=== PATIENT | female | born 1975 | race Caucasian/White ===

== ENCOUNTER 2017-09-08 20:04 | Emergency (ER) | payer OTHER ==
[~2017-09-08] VITALS: Ht 160 cm; Wt 104.3 kg
[~2017-09-08 20:04] MED LIST: ATENOLOL/HCTZ; HYDROCODON-ACE1 EAC7 PO; KEFLEX250 MG PO; NAPROSYN500 MG PO; ROBAXIN 750 MG750 M1 PO; SIMVASTATIN; TESSALON200 MG PO; ZPAK PO; [UNRECOGNIZED DRUG - OTHER]
[2017-09-08] MEDS ORDERED: NORCO 5-325 TA1 EAC1 PO (21:12)
[2017-09-08] MEDS ORDERED: CLEOCIN HCL150 MG PO (21:12)
[2017-09-08 21:23] VITALS: BP 147/96
[2018-05-19] MEDS ORDERED: NAPROSYN500 MG PO (07:15)
== END 2017-09-08 21:24 | disposition home or self-care (01) ==
LOC: M.ERS 20:04
DX: N61.1 Abscess of the breast and nipple (principal); F17.210 Nicotine dependence, cigarettes, uncomplicated; I10 Essential (primary) hypertension; E78.00 Pure hypercholesterolemia, unspecified; Z88.1 Allergy status to other antibiotic agents; Z88.8 Allergy status to other drugs, medicaments and biological substances; Z90.49 Acquired absence of other specified parts of digestive tract

== ENCOUNTER 2017-10-26 13:15 | Emergency (ER) | payer OTHER ==
[~2017-10-26] VITALS: Ht 160 cm; Wt 106.6 kg
[~2017-10-26 13:15] MED LIST changes: +CLEOCIN HCL150 MG PO; +NORCO 5-325 TA1 EAC1 PO
[2017-10-26] MEDS ORDERED: ADDERALL 10 MG10 MG PO (13:44)
[2017-10-26] MEDS ORDERED: LAMICTAL100 MG PO (13:44)
[2017-10-26] MEDS ORDERED: TRAZODONE 150150 M1 PO (13:44)
[2017-10-26] MEDS ORDERED: LEXAPRO 10 MG T10 M2 PO (13:44)
[2017-10-26] MEDS ORDERED: WELLBUTRIN 100100 MG PO (13:44)
[2017-10-26] MEDS ORDERED: FLEXERIL PO (14:11)
[2017-10-26] MEDS ORDERED: HYDROCODON-ACE1 EAC7 PO (14:11)
[2017-10-26] MEDS ORDERED: ATENOLOL-CHLOR1 EAC2 PO (14:12)
[2017-10-26 14:19] VITALS: BP 146/100
[2018-05-19] MEDS ORDERED: NAPROSYN500 MG PO (07:15)
== END 2017-10-26 14:20 | disposition home or self-care (01) ==
LOC: M.ERS 13:15
DX: G89.29 Other chronic pain (principal); M54.5 Low back pain; I10 Essential (primary) hypertension; F17.210 Nicotine dependence, cigarettes, uncomplicated; F10.99 Alcohol use, unspecified with unspecified alcohol-induced disorder; E78.00 Pure hypercholesterolemia, unspecified; F41.9 Anxiety disorder, unspecified; F32.9 Major depressive disorder, single episode, unspecified; Z88.1 Allergy status to other antibiotic agents; Z88.8 Allergy status to other drugs, medicaments and biological substances; Z90.49 Acquired absence of other specified parts of digestive tract

== ENCOUNTER 2018-07-06 20:43 | Emergency (ER) | payer OTHER, MEDICAID ==
[~2018-07-06] VITALS: Ht 160 cm; Wt 104.3 kg
[~2018-07-06 20:43] MED LIST changes: +ADDERALL 10 MG10 MG PO; +ATENOLOL-CHLOR1 EAC2 PO; +FLEXERIL PO; +LAMICTAL100 MG PO; +LEXAPRO 10 MG T10 M2 PO; +TRAZODONE 150150 M1 PO; +WELLBUTRIN 100100 MG PO
[2018-07-06] MEDS ORDERED: IBUPROFEN 800800 MG PO (21:32)
[2018-07-06] MEDS ORDERED: TRAMADOL 50 MG50 MG PO (21:32)
[2018-07-06 22:00] VITALS: BP 136/74
== END 2018-07-06 22:36 | disposition home or self-care (01) ==
LOC: M.ERS 20:43
DX: S83.92XA Sprain of unspecified site of left knee, initial encounter (principal); X58.XXXA Exposure to other specified factors, initial encounter; Y93.89 Activity, other specified; Y92.89 Other specified places as the place of occurrence of the external cause; Y99.8 Other external cause status

== ENCOUNTER 2018-07-24 14:04 | Emergency (ER) | payer OTHER, MEDICAID ==
[~2018-07-24] VITALS: Ht 160 cm; Wt 104.3 kg
[~2018-07-24 14:04] MED LIST changes: +IBUPROFEN 800800 MG PO; +TRAMADOL 50 MG50 MG PO
[2018-07-24] MEDS ORDERED: LEXAPRO 10 MG T10 M1 PO (14:14)
[2018-07-24] MEDS ORDERED: TRAZODONE HCL100 MG PO (14:14)
[2018-07-24 14:25] LABS: ABSOLUTE BASOPHILS 0.1 thou/uL (0.0-0.2); ABSOLUTE EOSINOPHILS 0.3 thou/uL (0.0-0.7); ABSOLUTE LYMPHOCYTES 2.8 thou/uL (0.8-5.3); ABSOLUTE MONOCYTES 0.5 thou/uL (0.0-1.2); ABSOLUTE NEUTROPHILS 4.2 thou/uL (1.6-8.1); BASOPHILS 0.9 %; EOSINOPHILS 3.2 %; HEMATOCRIT 43.6 % (37.0-47.0); HEMOGLOBIN 14.6 gm/dL (12.0-15.0); LYMPHOCYTES 35.4 %; MCHC 33.4 g/dL (28.0-37.0); MONOCYTES 6.7 %; MPV 6.9 fl. (7.2-11.1); NUCLEATED RBCS 0 /100WBC; PLATELET COUNT* 350 thou/uL (150-400); POLYS 53.8 %; RBC 4.85 mil/uL (4.20-5.00); RDW-CV 13.7 % (10.5-14.5); WBC 7.8 thou/uL (4.0-11.0)
[2018-07-24 14:56] LABS: CALCIUM 8.7 mg/dL (8.5-10.1); CREATININE 0.7 mg/dL (0.6-1.3); POTASSIUM 3.4 mmol/L (3.5-5.1)
[2018-07-24 15:01] LABS: ALBUMIN 3.3 g/dL (3.4-5.0); TOTAL BILIRUBIN 0.2 mg/dL (<0.1-1.0); TOTAL PROTEIN 6.6 g/dL (6.4-8.2)
[2018-07-24 15:43] LABS: URINE BILIRUBIN NEGATIVE (Negative); URINE BLOOD 1+ (Negative); URINE CLARITY CLOUDY; URINE COLOR YELLOW; URINE GLUCOSE-RANDOM NEGATIVE (Negative); URINE KETONES NEGATIVE (Negative); URINE LEUKOCYTES-REFLEX NEGATIVE (Negative); URINE NITRITE-REFLEX NEGATIVE (Negative); URINE PROTEIN TRACE (Negative); URINE SPECIFIC GRAVITY >= 1.030 (1.005-1.030); URINE UROBILINOGEN 0.2 E.U./dl (0.2-1.0)
[2018-07-24 16:12] LABS: BACTERIA-REFLEX None Seen /HPF (None Seen); CASTS None Seen /LPF (None Seen); CRYSTALS None Seen /LPF (None Seen); MUCUS 0-3 Light strn/LPF (None Seen); SQUAMOUS 4-10 Moderate /LPF (0-3); URINE WBC-REFLEX 0-5 Rare /HPF (0-5)
[2018-07-24] MEDS ORDERED: NORCO 5-325 TA1 EACH PO (16:24)
[2018-07-24] MEDS ORDERED: PHENERGAN 25 MG25 M1 PO (16:24)
[2018-07-24 16:25] LABS: URINE RBC None Seen /HPF (0-2)
--- NOTE | 2018-07-24 16:31 | EKG ---
[place] [address] ELECTROCARDIOGRAM REPORT Name: ROSARIO HI Room: [facility]#: [id number] Admission: 07/24/18 Attend Phys: Discharge: Date of : 79 Report #: [id number] THIS REPORT FOR: //name// [facility] ED Test Date: 2018-07-24 Test Time: 14:48:51 Pat Name: ROSARIO HI Department: Room: Gender: F Gambling Supervisor: Lydia MCKENZIE : 1975 Requested By: Sharla Guardado Order Number: [id number] MD: Duglas Mccarthy Measurements Intervals [place] Rate: 88 P: 22 TN: 183 QRS: 42 QRSD: 84 T: 32 QT: 366 QTc: 443 Interpretive Statements Sinus rhythm No previous ECG available for comparison Electronically Signed On 07-24-2018 16:31:28 RENAL NURSE by Duglas Mccarthy [email or web address] <ELECTRONICALLY SIGNED> By: Duglas Mccarthy MD, [facility] 07/24/18 1631 1448 1448 Duglas Mccarthy MD, FACC /EPI
[2018-07-24 16:50] VITALS: BP 129/83
== END 2018-07-24 16:52 | disposition home or self-care (01) ==
LOC: M.ERS 14:04
PROVIDERS: Personal Emergency Response Attendant
DX: R10.12 Left upper quadrant pain (principal); R10.32 Left lower quadrant pain; I10 Essential (primary) hypertension; E78.00 Pure hypercholesterolemia, unspecified; F41.9 Anxiety disorder, unspecified; F32.9 Major depressive disorder, single episode, unspecified; Z90.49 Acquired absence of other specified parts of digestive tract; Z98.890 Other specified postprocedural states; F17.210 Nicotine dependence, cigarettes, uncomplicated; Z88.1 Allergy status to other antibiotic agents; Z88.8 Allergy status to other drugs, medicaments and biological substances

== ENCOUNTER 2020-12-27 16:33 | Emergency (ER) | payer OTHER ==
[~2020-12-27] VITALS: Ht 160 cm; Wt 99.8 kg
[~2020-12-27 16:33] MED LIST changes: +LEXAPRO 10 MG T10 M1 PO; +NORCO 5-325 TA1 EACH PO; +PHENERGAN 25 MG25 M1 PO; +TRAZODONE HCL100 MG PO
[2020-12-27 16:48] LABS: URINE BILIRUBIN NEGATIVE (Negative); URINE BLOOD 2+ (Negative); URINE CLARITY CLOUDY; URINE COLOR YELLOW; URINE GLUCOSE-RANDOM NEGATIVE (Negative); URINE KETONES NEGATIVE (Negative); URINE LEUKOCYTES 2+ (Negative); URINE NITRITE NEGATIVE (Negative); URINE PROTEIN 2+ (Negative); URINE SPECIFIC GRAVITY >= 1.030 (1.005-1.030)
[2020-12-27 16:58] LABS: CASTS None Seen /LPF (None Seen); SQUAMOUS >10 Many /LPF (0-3)
[2020-12-27 16:59] LABS: BACTERIA >30 Many /HPF (None Seen); CRYSTALS None Seen /LPF (None Seen); URINE RBC 3-10 Few /HPF (0-2); URINE WBC >25 Many /HPF (0-5)
[2020-12-27 18:04] VITALS: BP 177/117
== END 2020-12-27 18:05 | disposition home or self-care (01) ==
LOC: M.ERS 16:33
PROVIDERS: Emergency Medicine
DX: N30.90 Cystitis, unspecified without hematuria (principal); N76.0 Acute vaginitis; Z11.3 Encounter for screening for infections with a predominantly sexual mode of transmission; E78.00 Pure hypercholesterolemia, unspecified; I10 Essential (primary) hypertension; F17.210 Nicotine dependence, cigarettes, uncomplicated; Z88.1 Allergy status to other antibiotic agents; Z88.8 Allergy status to other drugs, medicaments and biological substances; Z98.51 Tubal ligation status; Z98.890 Other specified postprocedural states; Z90.49 Acquired absence of other specified parts of digestive tract; Y08.89XA Assault by other specified means, initial encounter; Y93.89 Activity, other specified; Y92.89 Other specified places as the place of occurrence of the external cause; Y99.8 Other external cause status

== ENCOUNTER 2021-05-01 19:30 | Emergency (ER) | payer OTHER ==
[~2021-05-01] VITALS: Ht 160 cm; Wt 104.3 kg
[2021-05-01 20:24] LABS: ABSOLUTE BASOPHILS 0.1 thou/uL (0.0-0.2); ABSOLUTE EOSINOPHILS 0.3 thou/uL (0.0-0.7); ABSOLUTE LYMPHOCYTES 2.9 thou/uL (0.8-5.3); ABSOLUTE MONOCYTES 0.9 thou/uL (0.0-1.2); ABSOLUTE NEUTROPHILS 5.1 thou/uL (1.6-8.1); BASOPHILS 0.6 %; HEMATOCRIT 40.6 % (37.0-47.0); HEMOGLOBIN 13.2 gm/dL (12.0-15.0); LYMPHOCYTES 31.7 %; MCH 27.6 pg (26.0-34.0); MCHC 32.5 g/dL (28.0-37.0); MONOCYTES 9.8 %; MPV 6.7 fl. (7.2-11.1); NUCLEATED RBCS 0 /100WBC; PLATELET COUNT* 323 thou/uL (150-400); POLYS 54.9 %; RBC 4.77 mil/uL (4.20-5.00); RDW-CV 13.7 % (10.5-14.5); WBC 9.2 thou/uL (4.0-11.0)
[2021-05-01 20:31] LABS: CALCIUM 8.4 mg/dL (8.5-10.1)
[2021-05-01 20:45] LABS: URINE CLARITY CLOUDY; URINE COLOR ORANGE
[2021-05-01 20:46] LABS: URINE GLUCOSE-RANDOM ND (Negative); URINE KETONES 1+ (Negative); URINE PROTEIN ND (Negative); URINE REDUCING SUBSTANCE NEGATIVE (Negative); URINE SPECIFIC GRAVITY > 1.030 (1.005-1.030)
[2021-05-01 20:47] LABS: ACETEST (KETONE CONFIRMATORY) Negative (Negative); URINE BILIRUBIN ND (Negative); URINE BLOOD ND (Negative); URINE LEUKOCYTES-REFLEX ND (Negative); URINE NITRITE-REFLEX ND (Negative); URINE UROBILINOGEN ND E.U./dl (0.2-1.0)
[2021-05-01 20:49] LABS: ICTOTEST (BILI CONFIRMATORY) Positive (Negative)
[2021-05-01 20:52] LABS: SQUAMOUS >10 Many /LPF (0-3)
[2021-05-01 20:53] LABS: BACTERIA-REFLEX >30 Many /HPF (None Seen); CASTS None Seen /LPF (None Seen); CRYSTALS None Seen /LPF (None Seen); MUCUS 0-3 Light strn/LPF (None Seen); URINE RBC >20 Many /HPF (0-2); URINE WBC-REFLEX >25 Many /HPF (0-5)
[2021-05-01] MEDS ORDERED: NAPROSYN500 MG PO (22:21)
[2021-05-01] MEDS ORDERED: DOXYCYCLINE 10100 MG PO (22:21)
[2021-05-01 22:30] VITALS: BP 164/102
== END 2021-05-01 22:30 | disposition home or self-care (01) ==
LOC: M.ERS 19:30
PROVIDERS: Nurse Practitioner Family
DX: N72 Inflammatory disease of cervix uteri (principal); E78.00 Pure hypercholesterolemia, unspecified; I10 Essential (primary) hypertension; F41.9 Anxiety disorder, unspecified; F32.9 Major depressive disorder, single episode, unspecified; F17.210 Nicotine dependence, cigarettes, uncomplicated; Z88.1 Allergy status to other antibiotic agents; Z90.89 Acquired absence of other organs; Z98.51 Tubal ligation status; Z90.49 Acquired absence of other specified parts of digestive tract; Z88.6 Allergy status to analgesic agent